=== PATIENT | female | born 1990 | race Caucasian/White ===

== ENCOUNTER → 2022-04-24 08:00 | Outpatient (BNV) | payer OTHER, SELFPAY | PROVIDERS: PCP Internal Medicine; Referring Provider Registered Nurse; Visit Provider Internal Medicine Medical Oncology | DX: D3A.090 Benign carcinoid tumor of the bronchus and lung (principal) | CPT/HCPCS: 99204; 99213; 99214 ==

== ENCOUNTER 2024-10-16 09:37 | Outpatient (REF) | payer OTHER, SELFPAY ==
--- NOTE | ~2024-10-16 | CT_ITS ---
CLINICAL HISTORY: carcinoid of lung CT chest with contrast Comparison: CT/SR - CHEST WITHOUT CONTRAST [id number] - 05/10/16 16:06 EDT Findings: The heart size is within normal limits. No discrete thyroid lesion. No significant mediastinal adenopathy. Postsurgical changes of the right hilum and along the right lung base. There are 2 nodules within the right middle lobe not definitively seen prior, reference axial image 79, measuring 5 mm and axial image 90, measuring 4 mm. No effusion or pneumothorax. Small hiatal hernia present. No suspicious bone lesion. Moderate pectus excavatum. The upper abdomen demonstrates no acute process. Impression: There are 2 right-sided nodules not seen on prior studies. If there are more recent prior studies than the 2016 CT, those could reviewed. Otherwise, six-month follow-up given the patient history. This document has been electronically signed by: Regan Mcclendon MD on 10/16/2024 12:36:13
--- OUTSIDE RECORDS SUMMARY | 2024-10-16 10:04 | XMS_ITS | Encounter Summary ---
Author Organization [facility] Address [address] [place] [address] Care Team Providers Care Reel Assembler Name Role Phone Asa Zhang MD Primary Care Provider [phone] Reason for Referral * Consultation (Routine) - Pending Review Specialty Diagnoses / Procedures Referred By Contac t Referred To Contact Cardiology Diagnoses Palpitations Asa Zhang MD [address] [place] [address] Phone: tel: fax: Referral ID Status Reason Start Date Expiration Date Visits Requested Visits Authorized [id number] Pending Review Specialty Services Required 10/16/2024 10/16/2025 1 1 * Consultation (Routine) - Authorized Specialty Diagnoses / Procedures Referred By Contac t Referred To Contact Gynecology / Obstetrics and Gynecology Diagnoses Encounter for gynecological examination Asa Zhang MD [address] [place] [address] Phone: tel: fax: Obstetrics and Gynecology - [address] Phone: tel: fax: Referral ID Status Reason Start Date Expiration Date Visits Requested Visits Authorized [id number] Authorized Specialty Services Required 10/16/2024 10/16/2025 1 1 * Consultation (Routine) - Authorized Specialty Diagnoses / Procedures Referred By Luis Fernando hawkins Referred To Contact Pulmonary Disease / Pulmonology Diagnoses Lung nodule Asa Zhang MD [address] [place] [id number] Phone: tel: fax: Pulmonology - [address] [address] Phone: tel: fax: Referral ID Status Reason Start Date Expiration Date Visits Requested Visits Authorized [id number] Authorized Specialty Services Required 10/16/2024 10/16/2025 1 1 * Consultation (Routine) - Pending Review Specialty Diagnoses / Procedures Referred By Luis Fernando hawkins Referred To Contact Dermatology Diagnoses Hair loss Asa Zhang MD [address] [place] [address] Phone: tel: fax: Referral ID Status Reason Start Date Expiration Date Visits Requested Visits Authorized [id number] Pending Review Specialty Services Required 10/16/2024 10/16/2025 1 1 Reason for Visit * Reason Comments Follow-up On lung problems spine Curvature of spine Encounter Details Date Type Department Care Team (Late st Contact Info) Description 10/16/2024 8:15 AM EST Office Visit Adult Medicine [address] [address] Asa Zhang MD [address] [place] [id number] Palpitations (Primary Dx); Hair loss; Anxiety disorder, unspecified type; Kyphosis of thoracic region, unspecified kyphosis type; Benign carcinoid tumor of lung; Lung nodule; Mixed hyperlipidemia; Encounter for gynecological examination Social History Tobacco Use Types Packs/Day Years Used Date Smoking Tobacco: Never Smokeless Tobacco: Never Tobacco Cessation:Counseling Given: Not Answered Alcohol Use Standard Drinks/Week Comments No 0 (1 standard drink = 0.6 oz pur e alcohol) Comments Unknown Sex and Gender Information Value Date Recorded Sex Assigned at Not on file Legal Sex Female 2:14 AM EST Gender Identity Not on file Sexual Orientation Not on file documented as of this encounter Last Filed Vital Signs Vital Sign Reading Time Taken Comments Blood Pressure 108/72 10/16/2024 8:10 AM EST Pulse 84 10/16/2024 8:10 AM EST Temperature 36.5 ??C (97.7 ??F) 10/16/2024 8:[address] Respiratory Rate 12 10/16/2024 8:10 AM EST Oxygen Saturation - - Inhaled Oxygen Concentration - - Weight 87.5 kg (193 lb) 10/16/2024 8:10 AM EST Height 167.6 cm (5' 6 ) 10/16/2024 8:10 AM EST Body Mass Index 31.15 10/16/2024 8:10 AM EST documented in this encounter Ordered Prescriptions Prescription Sig Dispense Quantity Refills Last Filled Start Date End Date cholecalciferol (VITAMIN D-3) 50 mcg (2,000 unit) tablet Take 1 tablet (2,000 Units total) by mouth 1 (one) time each day. 90 tablet 1 10/16/2024 documented in this encounter Progress Notes * Asa Zhang MD - 10/16/2024 8:15 AM EST CHIEF COMPLAINT: Follow-up (On lung problems) and spine (Curvature of spine) IDENTIFIER: Kimberly Pichardo is a 34 y.o. old female. HPI: 34-year-old female patient with a past medical history of carcinoid of lung, status post right middle and lower lobe resection in 2016, hyperlipidemia, obesity, anxiety disorder, palpitations, thoracic kyphosis, who is seen here for med review follow-up exam. Patient with recently seen by interventional rocket engine mechanic Dr. Yin and oncologist Dr. Bland. She reported that she has intermittent palpitations, happened a couple of times in the last 4 months. She also complained of some funny feeling in the chest. No typical anginal pain exertional shortness of breath. She has frequent anxiety episodes. Patient has thoracic kyphosis and complaint of intermittent back pain. She complained of increased hair loss. ROS: GENERAL: Hair loss HEENT: No changes in hearing or vision, nose bleeds or other nasal problems NECK: No lumps RESPIRATORY: No cough, wheezing or shortness of breath CARDIOVASCULAR: Intermittent palpitations GI: No abdominal pain, hematochezia, melena : No dysuria, oliguria, polyuria, hematuria, flank pain MUSCULOSKELETAL: On and off backache SKIN: No lesions, rash or itching NEURO: No persistent headache, syncope, seizures, weakness or numbness PAST MEDICAL HISTORY: Patient Active Problem List Diagnosis Date Noted Benign carcinoid tumor of lung 10/16/2024 Kyphosis of thoracic region 10/16/2024 Class 1 obesity due to excess calories without serious comorbidity in adult 08/05/2024 Mixed hyperlipidemia 04/15/2024 Pap smear abnormality of cervix/human papillomavirus (HPV) positive 04/25/2022 Insomnia 03/01/2019 Panic attack 02/27/2019 Malignant neoplasm of lung (CMS/HCC) 10/11/2017 Lung nodule 06/17/2015 Anxiety disorder 10/20/2013 Asthma 10/20/2013 Past Surgical History: Procedure Laterality Date OTHER SURGICAL HISTORY 2014 PROCEDURE: HISTORY OTHER; COMMENT: Right Lung CA resection SOCIAL HISTORY: Social History Tobacco Use Smoking status: Never Smokeless tobacco: Never Substance Use Topics Alcohol use: No FAMILY HISTORY: Family History Problem Relation Name Age of Onset No Known Problems Sister No Known Problems Brother No Known Problems Brother Diabetes Paternal Grandmother Breast cancer Mother Arthritis Mother Other (Other: Other) Mother Depression Mother Other (Other: panic attacks) Mother Depression Father Schizophrenia Father Other (Other: some type of heart disease ) Maternal Grandmother Breast cancer Other maternal aunt Ovarian cancer Neg Hx Uterine cancer Neg Hx Family Status Relation Name Status Sister Alive Brother Alive Brother Alive PGM Alive Mother Alive Father Alive MGM Other maternal aunt Alive Neg Hx (Not Specified) PGF No partnership data on file MEDICATIONS DISCONTINUED/REORDERED: Medications Discontinued During This Encounter Medication Reason cholecalciferol (VITAMIN D-3) 50 mcg (2,000 unit) tablet Reorder ACTIVE MEDICATIONS: Outpatient Medications Marked as Taking for the 10/16/24 encounter (Office Visit) with Asa Zhang MD Medication Sig Dispense Refill cholecalciferol (VITAMIN D-3) 50 mcg (2,000 unit) tablet Take 1 tablet (2,000 Units total) by mouth1 (one) time each day. 90 tablet 1 hydrOXYzine HCL (ATARAX) 10 mg tablet Take 1 tablet (10 mg total) by mouth 3 (three) times a day ifneeded for anxiety. mirtazapine (REMERON SLY-TAB) 30 mg disintegrating tablet Take 1 tablet (30 mg total) by mouth at bedtime. [DISCONTINUED] cholecalciferol (VITAMIN D-3) 50 mcg (2,000 unit) tablet Take 1 tablet (2,000 Units total) by mouth 1 (one) time each day. ALLERGIES: No Known Allergies PHYSICAL EXAM: Visit Vitals BP 108/72 (BP Location: Left arm, Patient Position: Sitting, BP Cuff Size: Adult long) Pulse 84 Temp 36.5 ??C (97.7 ??F) (Temporal) Resp 12 Ht 1.676 m (66 ) Wt 87.5 kg (193 lb) LMP 10/14/2024 BMI 31.15 kg/m?? Smoking Status Never BSA 1.97 m?? Physical Exam APPEARANCE: Alert and in no acute distress EYES: PERRLA, conjunctiva and sclera normal. EARS: External ears normal. NOSE/SINUS: Nares normal. MOUTH/THROAT: no erythema or exudates HEART: RRR with normal S1 and S2, no murmurs LUNG: clear to auscultation, no wheezing ABDOMEN: Bowel sounds normoactive, soft, non-tender and no palpable masses. BACK: No pain to palpation EXTREMITIES: No edema NEURO: Awake, alert and oriented x 3. No focal neurological deficits SKIN: No rashes LABS: @CBC@ No results found for: NA , K , CL , CO2 , GLUCOSE , BUN , CREATININE , CALCIUM , PROT , ALBUMIN , BILITOT , AST , ALT , URICACID , PHOS , MG , ALKPHOS , CKTOTAL , EGFR Lab Results Component Value Date HGBA1C 4.7 12/12/2023 No results found for: TSH Lab Results Component Value Date CHOL 206 (A) 12/12/2023 TRIG 106 12/12/2023 HDL 53 12/12/2023 LDL 132 (A) 12/12/2023 IMAGING: EKG-normal sinus rhythm, no acute ST-T changes. Ordered thoracic spine x-ray IMPRESSION: 1. Palpitations 2. Hair loss 3. Anxiety disorder, unspecified type 4. Kyphosis of thoracic region, unspecified kyphosis type 5. Benign carcinoid tumor of lung 6. Lung nodule 7. Mixed hyperlipidemia 8. Encounter for gynecological examination PLAN: Patient complained of on and off palpitations. No typical anginal symptoms or exertional shortness of breath. EKG-normal sinus rhythm, no acute ST-T changes. Check TSH level. Patient is recommended to avoid caffeinated drinks, alcohol. I will refer her to the residential sales manager for further evaluation. I will refer to the information technology auditor for hair loss evaluation. Check TSH level. I recommended her to follow-up with her therapist/psychiatrist and continue hydroxyzine as needed for anxiety disorder and Remeron She has thoracic kyphosis and complaint of on and off backache. I recommended her to take Tylenol as needed and I will do x-ray thoracic spine. She has history of lung nodules. She does not smoke. I will refer her back to the interventional rocket engine mechanic for follow-up exam when she follows with oncologist at [facility] Last LDL level was 132, patient is counseled for low-fat diet, repeat lipid profile and she is not on any statin therapy. Labs ordered including BMP, TSH and lipid panel. I referred her to the SKI PRODUCTION SUPERVISOR for Pap smear exam Follow-up exam in 6 months for physical exam All questions and concerns were addressed. Kimberly Pichardo verbalizes understanding and agrees with this treatment plan. Patient was reminded to call or return to the office if any new or existing problems arise. Orders Placed This Encounter Procedures XR Thoracic Spine Complete 4+ Views Basic metabolic panel Thyroid stimulating hormone with reflex to free t4 and free t3 Lipid panel with reflex to direct LDL Ambulatory referral to Dermatology Ambulatory referral to Interventional Pulmonology Ambulatory referral to Gynecology Ambulatory referral to Cardiology ECG 12 lead XR THORACIC SPINE COMPLETE 4+ VIEWS AMB REFERRAL TO DERMATOLOGY AMB REFERRAL TO INTERVENTIONAL PULMONOLOGY AMB REFERRAL TO GYNECOLOGY AMB REFERRAL TO CARDIOLOGY Asa Zhang MD on 10/16/2024 at 8:46 AM EST Today's documentation was made using voice recognition software.This note may contain grammatical errors secondary to this software. documented in this encounter Plan of Treatment Upcoming Encounters Date Type Department Care Team (Late st Contact Info) Description 04/15/2025 10:30 AM EDT Office Visit Adult Medicine [facility] [address] [place] [phone] Asa Zhang MD [address] [place] [id number] Scheduled Orders Name Type Priority Associated Diagnoses Orde r Schedule Basic metabolic panel Lab Routine Palpitations Hair loss Anxiety disorder, unspecified type Kyphosis of thoracic region, unspecified kyphosis type Benign carcinoid tumor of lung Lung nodule Mixed hyperlipidemia 1 Occurrences starting 10/16/2024 until 10/16/2025 Thyroid stimulating hormone with reflex to free t4 and free t3 Lab Routine Palpitations Hair loss Anxiety disorder, unspecified type Kyphosis of thoracic region, unspecified kyphosis type Benign carcinoid tumor of lung Lung nodule Mixed hyperlipidemia 1 Occurrences starting 10/16/2024 until 10/16/2025 Lipid panel with reflex to direct LDL Lab Routine Palpitations Hair loss Anxiety disorder, unspecified type Kyphosis of thoracic region, unspecified kyphosis type Benign carcinoid tumor of lung Lung nodule Mixed hyperlipidemia 1 Occurrences starting 10/16/2024 until 10/16/2025 Scheduled Referrals Name Type Priority Associated Diagnoses Orde r Schedule Ambulatory referral to Dermatology Outpatient Referral Routine Hair loss 1 Occurrences starting 10/16/2024 until 10/16/2025 Ambulatory referral to Interventional Pulmonology Outpatient Referral Routine Lung nodule 1 Occurrences starting 10/16/2024 until 10/16/2025 Ambulatory referral to Gynecology Outpatient Referral Routine Encounter for gynecological examination 1 Occurrences starting 10/16/2024 until 10/16/2025 Ambulatory referral to Cardiology Outpatient Referral Routine Palpitations 1 Occurrences starting 10/16/2024 until 10/16/2025 documented as of this encounter Procedures Procedure Name Priority Date/Time Associated Diagnosis Comments ECG 12-LEAD Routine 10/16/2024 8:45 AM EST Palpitations documented in this encounter Results * ECG 12 lead (10/16/2024 8:45 AM EST) Narrative Asa Zhang MD - 10/16/2024 8:45 AM EST EKG-normal sinus rhythm, no acute ST-T changes. Asa Zhang MD ECG ORDERABLES Final Resul t documented in this encounter Visit Diagnoses Diagnosis Palpitations- Primary Hair loss Unspecified alopecia Anxiety disorder, unspecified type Kyphosis of thoracic region, unspecified kyphosis type Benign carcinoid tumor of lung Benign carcinoid tumor of the bronchus and lung Lung nodule Other diseases of lung, not elsewhere classified Mixed hyperlipidemia Encounter for gynecological examination documented in this encounter Discontinued Medications Medication Sig Discontinue Reason Start Date End Da te cholecalciferol (VITAMIN D-3) 50 mcg (2,000 unit) tablet Take 1 tablet (2,000 Units total) by mouth 1 (one) time each day. Reorder 12/12/2023 10/16/2024 documented as of this encounter Care Teams Reel Assembler Relationship Specialty Start Date End Date Asa Zhang MD [address] [place] [phone] PCP - General 11/12/23 documented as of this encounter
--- OUTSIDE RECORDS SUMMARY | 2024-10-16 10:04 | XMS_ITS | Encounter Summary ---
Author Organization [facility] Address [address] [place] [address] Care Team Providers Care Mechanical Intern Name Role Phone Asa Zhang MD Primary Care Provider [phone] Encounter Details Date Type Department Care Team (Latest Contact Info) Description 10/16/2024 8:56 AM EST Hospital Encounter [address] [phone] Kyphosis of thoracic region, unspecified kyphosis type Social History Tobacco Use Types Packs/Day Years Used Date Smoking Tobacco: Never Smokeless Tobacco: Never Alcohol Use Standard Drinks/Week Comments No 0 (1 standard drink = 0.6 oz pur e alcohol) Comments Unknown Sex and Gender Information Value Date Recorded Sex Assigned at Not on file Legal Sex Female 2:14 AM EST Gender Identity Not on file Sexual Orientation Not on file documented as of this encounter Plan of Treatment Upcoming Encounters Date Type Department Care Team (Late st Contact Info) Description 04/15/2025 10:30 AM EDT Office Visit Adult Medicine [address] [phone] Asa Zhang MD [address] [place] [address] Pending Results Name Type Priority Associated Diagnoses Date /Time XR Thoracic Spine 2 Views Imaging Routine Kyphosis of thoracic region, unspecified kyphosis type 10/16/2024 9:23 AM EST Scheduled Orders Name Type Priority Associated Diagnoses Orde r Schedule XR Thoracic Spine 2 Views Imaging Routine Kyphosis of thoracic region, unspecified kyphosis type Once for 1 Occurrences starting 10/16/2024 until 10/16/2024 documented as of this encounter Visit Diagnoses Diagnosis Kyphosis of thoracic region, unspecified kyphosis type documented in this encounter Care Teams Mechanical Intern Relationship Specialty Start Date End Date Asa Zhang MD [address] [place] [phone] PCP - General 11/12/23 documented as of this encounter
--- OUTSIDE RECORDS SUMMARY | 2024-10-16 10:04 | XMS_ITS | Encounter Summary ---
Author Organization [facility] Address [address] [place] [address] Care Team Providers Care Tile Layer Drainage Name Role Phone Asa Zhang MD Primary Care Provider [phone] Reason for Visit * Reason Onset Date Comments WALK IN 09/18/2024 HEART PROBLEM Encounter Details Date Type Department Care Team ([facility] Contact Info) Description 09/18/2024 Telephone Adult Medicine [facility] [address] [place] [address] Asa Zhang MD [address] [place] [address] WALK IN (HEART PROBLEM) Social History Tobacco Use Types Packs/Day Years [...] on file documented as of this encounter Progress Notes * Rebeca Benavidez RN - 09/18/2024 4:42 PM EST Called and spoke with pt. Pt c/o episodes of rapid heart rate and vision going black and dizzy and feels like going to pass out. Pt sts happened multiple times this week. Pt advised to go to er for evaluation advised should not wait until next week for appt needs to be see bernice with sx * Jade Siddiqi - 09/18/2024 4:23 PM EST Patient is calling back. Would like care team to return call. * Rebeca Benavidez RN - 09/18/2024 10:29 AM EST Went to waiting room pt isnt there- bsr sts pts son had a hair appt- Called pt left vm to return * Minnie Valdivia - 09/18/2024 10:19 AM EST Patient call requires triage: Symptoms patient is presenting: PATIENT WALKED IN COMPLAIN OF HEART PROBLEM How long has patient had these symptoms?: 1 MONTH For ALL patients calling to schedule any appointment (routine, sick visit, follow up, consult, etc.) in the outpatient setting please ask the following questions: Do you have fever of higher than 101, sore throat with difficulty swallowing or severe shortness ofbreath? no If YES to any of these above symptoms, send a message to triage and do not book. Red dot. If no, an audio or video visit should be booked. Have you had close contact with someone with Coronavirus in the last 14 days? no Have you traveled abroad? no Have you traveled recently to another state outside of [place], [place], [place], [place], [place], [place], [place]? no o If yes, did you quarantine for 14 days or have a negative covid test? no If yes to any of the above, patient is not to be scheduled in office until after 14 day quarantine or negative covid test. If pain or injury related was it due to an accident at work or from a motor vehicle accident? If yes, date of accident/Injury: No If yes, gather 3rd libertarian insurance information Third Democrat Information: not applicable PCP: Asa Zhang MD Payor: [facility] MEDICARE / Plan: [employer] ONE CARE / Product Type: *No Product type* / documented in this encounter Plan of Treatment Upcoming Encounters Date Type Department Care Team (Late st Contact Info) Description 04/15/2025 10:30 AM EDT Office Visit Adult Medicine [address] [phone] Asa Zhang MD [address] [place] [address] documented as of this encounter Visit Diagnoses Not on filedocumented in this encounter Care Teams Tile Layer Drainage Relationship Specialty Start Date End Date Asa Zhang MD [address] [place] [address] PCP - General 11/12/23 documented as of this encounter
--- OUTSIDE RECORDS SUMMARY | 2024-10-16 10:05 | XMS_ITS | Clinical Summary ---
Author Organization [facility] Address [address] [place] [phone] Phone Care Team Providers Care Fractionation Plant Supervisor Name Role Phone Asa Zhang MD Primary Care Provider [phone] Allergies No known active allergies Medications mirtazapine (REMERON SLY-TAB) 30 mg disintegrating tablet Take 1 tablet (30 mg total) by mouth at bedtime. Active hydrOXYzine HCL (ATARAX) 10 mg tablet Take 1 tablet (10 mg total) by mouth 3 (three) times a day if needed for anxiety. Active medroxyPROGESTERon e 150 mg/mL injection Inject 1 mL into the muscle Every 3 Months. 3 Active cholecalciferol (VITAMIN D-3) 50 mcg (2,000 unit) tablet Take 1 tablet (2,000 Units total) by mouth 1 (one) time each day. 90 tablet 1 5 Active cholecalciferol (VITAMIN D-3) 50 mcg (2,000 unit) tablet Take 1 tablet (2,000 Units total) by mouth 1 (one) time each day. 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 Has not been seen for a few yrs, now . [facility] referral placed Advised to f/u with Oncology bernice 04/24/22- Seen at [facility]- notes requested and will be faxed to [facility]: -NCCN guidelines recommend CT scan q3 months x1 year, then q6 months. She was lost to f/u since 2017 -Last CT in January 2017 demonstrated stable 0.4cm nodule in the right upper lobe -Heme/Onc to follow labs including chromogranin level to monitor disease activity -To f/u with Heme/Onc in 3 months -No contraindications to normal vaginal delivery Lung nodule 06/17/2015 Anxiety disorder 10/20/2013 Overview (08/05/2024): Mirtazapam- 15mg daily Has therapist and phyciatrist- has upcoming apt in May Pt taking 3.25mg BID during Asthma 10/20/2013 Encounters Date Type Department Care Team Description 10/16/2024 8:56 AM EST Hospital Encounter [address] [phone] Kyphosis of thoracic region, unspecified kyphosis type 10/16/2024 8:15 AM EST Office Visit Adult Medicine [address] [phone] Asa Zhang MD Palpitations (Primary Dx); Hair loss; Anxiety disorder, unspecified type; Kyphosis of thoracic region, unspecified kyphosis type; Benign carcinoid tumor of lung; Lung nodule; Mixed hyperlipidemia; Encounter for gynecological examination 09/18/2024 Telephone Adult Medicine [address] [phone] Asa Zhang MD WALK IN (HEART PROBLEM) 08/24/2024 Telephone Adult Medicine [address] [phone] Asa Zhang MD triage from Last 3 Months Immunizations Name Administration Dates Next Due Influenza Quadravalent, MDCK , 0.5ml, preservative free (Flucelvax) 6mo and older 09/06/2022 Tdap Tetanus diptheria acell ular pertussis (Boostrix; Adacel) 7yo and older 07/25/2022,10/15/2013 Surgical History Surgery Date Site/Laterality Comments OTHER SURGICAL HISTORY 2014 PROCEDURE: HISTORY OTHER; COMMENT: Right Lung CA resection Medical History Medical History Date Comments Asthma 10/20/2013 DX:Asthma Depression 10/20/2013 DX:Depression Lung mass 06/17/2015 DX:Lung mass Family History Medical History Relation Name Comments No Known Problems Brother 1 No Known Problems Brother 2 Depression Father Schizophrenia Father Other: some type of heart disease Maternal Grandmother Arthritis Mother Breast cancer Mother Depression Mother Other: Other Mother Other: panic attacks Mother Breast cancer Other maternal aunt Diabetes Paternal Grandmother No Known Problems Sister Ovarian cancer Neg Hx Uterine cancer Neg Hx Relation Name Status Comments Brother 1 Alive Brother 2 Alive Father Alive Maternal Grandmother Mother Alive Other maternal aunt Alive Paternal Grandfather Paternal Grandmother Alive Sister Alive Social History Tobacco Use Types Packs/Day Years [...] on file Sexual Orientation Not on file Obstetrics History Last Filed Vital Signs Vital Sign Reading Time Taken Comments Blood Pressure 108/72 10/16/2024 8:10 AM EST Pulse 84 10/16/2024 8:10 AM EST Temperature 36.5 ??C (97.7 ??F) 10/16/2024 8:10 AM ES T Respiratory Rate 12 10/16/2024 8:10 AM EST Oxygen Saturation - - Inhaled Oxygen Concentration - - Weight 87.5 kg (193 lb) 10/16/2024 8:10 AM EST Height 167.6 cm (5' 6 ) 10/16/2024 8:10 AM EST Body Mass Index 31.15 10/16/2024 8:10 AM EST Plan of Treatment Upcoming Encounters Date Type Department Care Team (Late st Contact Info) Description 04/15/2025 10:30 AM EDT Office Visit Adult Medicine [facility] [address] [place] [phone] Asa Zhang MD [address] [place] [phone] Health Maintenance Due Date Last Done Comments COVID-19 Vaccine (#1) 1995 Hepatitis B Vaccines (1 of 3 - 19+ 3-dose series) 2009 Pneumococcal Vaccine: Pediatrics (0 to 5 Years) and At-Risk Patients (6 to 64 Years) (1 of 2 - PCV) 2009 Medicare Annual Wellness Visit 08/05/2022 Social Influencers of Health Screening 08/05/2022 Influenza Vaccine (#1) 2024 , 08/31/2016, 05/30/2015 Depression Screening 04/15/2025 04/15/2024 Cervical Cancer Screening: HPV 11/17/2027 11/16/2022 Cholesterol Screening (Lipid Panel) 12/11/2028 12/12/2023 DTaP,Tdap,and Td Vaccines (3 - Td or Tdap) 07/25/2032 07/25/2022, 10/15/2013 HIV Screening Completed 04/12/2022 Hepatitis C Screening Completed 04/12/2022 HIB Vaccines Aged Out No longer eligi ble based on patient's age to complete this topic HPV Vaccines Aged Out No longer eligi ble based on patient's age to complete this topic Hepatitis A Vaccines Aged Out No long er eligible based on patient's age to complete this topic IPV Vaccines Aged Out No longer eligi ble based on patient's age to complete this topic MMR Vaccines Aged Out No longer eligi ble based on patient's age to complete this topic Meningococcal ACWY Vaccine Aged Out N o longer eligible based on patient's age to complete this topic Meningococcal B Vacine Aged Out No lo nger eligible based on patient's age to complete this topic RSV Immunization Patients Under 20 months Aged Out No longer eligible b ased on patient's age to complete this topic Varicella Vaccines Aged Out No longer eligible based on patient's age to complete this topic Procedures Procedure Name Priority Date/Time Associated Diagnosis Comments ECG 12-LEAD Routine 10/16/2024 8:45 AM EST Palpitations DEPRESSION SCREENING Routine 04/15/2024 LIPID PANEL Routine 12/12/2023 HPV Routine 11/16/2022 HEPATITIS C SCREENING Routine 04/12/2022 HIV SCREENING Routine 04/12/2022 from Last 3 Months or Most Recently Relevant to Health Maintenance Results * ECG 12 lead (10/16/2024 8:45 AM EST) Narrative Asa Zhang MD - 10/16/2024 8:45 AM EST EKG-normal sinus rhythm, no acute ST-T changes. Asa Zhang MD ECG ORDERABLES Final Resul t * Depression Screening (04/15/2024) [facility] Depression Screening Abstracted Historical Provider HEALTH MAINTENANCE Final Result * (ABNORMAL) Lipid panel (12/12/2023) [facility] LDL/HDL Ratio 4 0 - 4 Triglycerides 106 0 - 150 mg/dL Cholesterol 206(A) 0 - 200 mg/dL HDL 53 >=40 mg/dL LDL Cholesterol 132(A) 0 - 100 mg/dL Blood Venous blood specimen / Unknown Historical Provider LAB BLOOD ORDERABLES Maryam l Result * Cervical Cancer Screening: HPV (11/16/2022) [facility] Cervical Cancer Screening: HPV Abstracted, Negative Historical Provider HEALTH MAINTENANCE Final Result * HIV Screening (04/12/2022) HIV Screening Abstracted Historical Provider HEALTH MAINTENANCE Final Result * Hepatitis C Screening (04/12/2022) Hepatitis C Screening Abstracted Historical Provider HEALTH MAINTENANCE Final Result from Last 3 Months or Most Recently Relevant to Health Maintenance Insurance [employer] Member Subscriber Plan / Payer (Ef fective 2019-Present) Name:Kimberly Stoll Relation to Subscriber:Self Name:Kimberly Stoll Payer ID:[id number] Group ID:[id number] Type:Not on file Address: [address] [facility] [place] [id number] Care Teams Fractionation Plant Supervisor Relationship Specialty Start Date End Date Asa Zhang MD [address] [place] [id number] PCP - General 11/12/23
[2024-10-16] MEDS: iohexoL 350 MG/ML 100 ML INFUS..BTL IV (10:13)
== END 2024-10-16 09:38 | disposition home or self-care (01) ==
LOC: HO.CT 09:37
PROVIDERS: PCP Internal Medicine; Visit Provider Internal Medicine Medical Oncology
DX: D3A.00 Benign carcinoid tumor of unspecified site (principal); R91.8 Other nonspecific abnormal finding of lung field
CPT/HCPCS: 71260; Q9967

== ENCOUNTER → 2024-10-16 09:38 | Outpatient (BNV) | payer OTHER, SELFPAY | PROVIDERS: PCP Internal Medicine; Visit Provider Radiology Vascular & Interventional Radiology | DX: R91.1 Solitary pulmonary nodule (principal) | CPT/HCPCS: 71260 ==

== ENCOUNTER 2024-12-04 21:46 | Emergency (ER) | payer OTHER, SELFPAY ==
--- NOTE | 2024-12-04 | ECG_ITS ---
Test Reason : CP Blood Pressure : */* mmHG Vent. Rate : 66 BPM Atrial Rate : 66 BPM P-R Int : 142 ms QRS Dur : 92 ms QT Int : 422 ms P-R-T Axes : 42 52 20 degrees QTcB Int : 442 ms Normal sinus rhythm Normal ECG No previous ECGs available Referred By: Generic ED Physician Electronically Signed By: NICHOLAS BROWNE
[2024-12-04 22:23] VITALS: BP 118/66; PULSE 67; RESP 20; TEMP 36.7; O2SAT 100; BMI 30.3
[2024-12-04 22:49] LABS: MANUAL DIFF FLAG NO
[2024-12-04 22:51] LABS: Basophils Percent Auto 0.8 % (0-2); Eosinophils Absolute Auto 0.2 X10*3/uL (0.0-0.4); Eosinophils Percent Auto 3.3 % (0-4); Hematocrit 38.1 % (37.0-47.0); Hemoglobin 13.3 g/dl (12.0-16.0); Imm Gran Abs Auto 0.01 X10*3/uL (0.00-0.03); Imm Gran Pct Auto 0.2 % (0.0-0.4); Lymphocytes Absolute Auto 2.6 X10*3/uL (1.2-4.9); Lymphocytes Percent Auto 52.1 % (20-40); Mean Corpuscular HGB Conc 34.9 g/dl (31.0-35.0); Mean Corpuscular Hemoglobin 30.7 pg (27.0-33.0); Mean Platelet Volume 9.7 fL (9.4-12.3); Monocytes Absolute Auto 0.3 X10*3/uL (0.1-1.2); Monocytes Percent Auto 6.3 % (2-11); Neutrophils Absolute Auto 1.8 x10*3/uL (2.0-8.3); Neutrophils Percent Auto 37.3 % (45-73); Platelet Count 302 X10*3/uL (160-400); Red Blood Count 4.33 X10*6/uL (4.20-5.50); Red Cell Distribution Width 12.5 % (11.0-16.0); White Blood Count 4.9 X10*3/uL (4.8-10.8)
[2024-12-04 23:06] LABS: Alanine Aminotransferase 23 U/L (0-31); Alkaline Phosphatase 70 U/L (39-117); Anion Gap 11 (12-20); Aspartate Amino Transferase 20 U/L (5-31); Bilirubin Total 0.3 mg/dL (0.0-1.0); Blood Urea Nitrogen 9 mg/dL (9-16); Calcium 9.1 mg/dL (8.4-10.2); Carbon Dioxide 25 mmol/L (22-29); Chloride 112 mmol/L (96-108); Creatinine Clr Calc Pharmacy 126.3; Estimated Glomerular Filt Rate > 60; Glucose Random 84 mg/dL (60-115); Potassium 3.6 mmol/L (3.3-5.1); Sodium 144 mmol/L (135-145)
[2024-12-04 23:15] LABS: Troponin-I High Sensitivity < 2.7 ng/L (<3.5-17.0)
--- OUTSIDE RECORDS SUMMARY | 2024-12-04 23:49 | XMS_ITS | Encounter Summary ---
Author Organization [facility] Address [address] [place] [address] Care Team Providers Care Welder Fitter Arc Name Role Phone Asa Zhang MD Primary Care Provider [phone] Encounter Details Date Type Department Care Team (Late st Contact Info) Description 12/01/2024 3:00 PM EDT [facility] [address] [place] [phone] June Yin MD [address] [place] [phone] Lung nodule (Primary Dx); Malignant carcinoid tumor of lung Social History Tobacco Use Types Packs/Day Years [...] as of this encounter Progress Notes * June Yin MD - 12/01/2024 3:00 PM EDT Images from the original note were not included. 12/01/2024 Kimberly Pichardo : 1990 PCP: Asa Zhang MD CONSENT I conducted this virtual encounter from Pulmonology [facility] via secure, live, [id number] video conference with the patient. Started video visit and patient had technical issues with the videoduring the visit. Kimberly Pichardo was located at home. Present with the patient was none. Prior to the interview, the risks and benefits of telemedicine were discussed with the patient and verbal consent was obtained. This telemedicine visit occurred in order to mitigate exposure risk duringthe COVID-19 pandemic. Reason for telemedicine encounter: see above and patient preference Chief Complaint:: lung nodules History of Present Illness: Kimberly Pichardo is a 34 y.o. female PMH lung carcinoid status post right middle and lower lobe lobectomy in 2016 at [facility] by Dr. Be Chung, obesity, anxiety and depression and panic attacks, who presents as a new consult for lung nodules. She follows with Dr. Baldo Salmeron from Oncology at [facility] for carcinoid tumor, reportedly typical. We obtained notes from their office as pt could provide limited hx. In 2014 she had a Right VATS with resection for a mass in RLL and found to be 3.5 cm typical carcinoid tumor, with negative LNs, stage pT2a, pN0. She is seen by Dr. Salmeron. She had a CT chest done at [facility] (in [employer] [facility]) 05/13/24 which showed postoperative changes in R lung and multiple pulmonary nodules up to 5 mm unchanged from 2018. There is an area of linear atelectasis in RML. Had a follow up CT chest in [facility] Oct 2024 but this CD was not sent. This report states there arenew RML nodules not previously seen in 2016 (which was last CT apparently available for comparison at [facility]). She has no new symptoms except some musculoskeletal pain on R side of chest. No F/C, hemoptysis, unintentional wt loss, night sweats. We obtained imaging from [facility] from Oct 2024 and pt presents for video visit today. I reviewed January 2018, May 2024, and Oct 2024 imaging which is now available in [employer] PACS system. Nodules are inRUL and unchanged in size, approx 5 mm both, over this time period since 2018. Allergies: No Known Allergies Medications: Current Outpatient Medications Medication Instructions cholecalciferol (VITAMIN D-3) 2,000 Units, oral, Daily hydrOXYzine HCL (ATARAX) 10 mg tablet 1 tablet, 3 times daily PRN medroxyPROGESTERone 150 mg/mL injection Inject 1 mL into the muscle Every 3 Months. mirtazapine (REMERON SLY-TAB) 30 mg, Nightly Past Medical History: Diagnosis Date Asthma 10/20/2013 DX:Asthma Depression 10/20/2013 DX:Depression Lung mass 06/17/2015 DX:Lung mass Past Surgical History: Procedure Laterality Date OTHER SURGICAL HISTORY 2014 PROCEDURE: HISTORY OTHER; COMMENT: Right Lung CA resection Family History Problem Relation Name Age of [...] cancer Neg Hx Uterine cancer Neg Hx Social History Socioeconomic History Marital status: Single Spouse name: Not on file Number of children: Not on file Years of education: Not on file Highest education level: Not on file Occupational History Not on file Tobacco Use Smoking status: Never Smokeless tobacco: Never Substance and Sexual Activity Alcohol use: No Drug use: No Sexual activity: Not on file Comment: Other Topics Concern Not on file Social History Narrative 04/03/22 Planned :NO- happy- Lives with: daughters- 10 and 9yo girls Other Children: 2 boys and 1 girl by other partner - FOB of current Support system in place:YES - zoroastrianism and family Pets:NO Occupation: on SSI FOB occupation: CN A Smoker:NO Pt Ethnic Background: FOB Ethnic Background: FOB of 2 girls, had vascectomy, and moved out when patient became . Patient had another partner. Other male partner aware patient . Review of Systems Constitutional: Negative. HENT: Negative. Eyes: Negative. Respiratory: See HPI otherwise negative Cardiovascular: Negative. Gastrointestinal: Negative. Endocrine: Negative. Genitourinary: Negative. Musculoskeletal: Negative. Skin: Negative. Breast: negative. Allergic/Immunologic: Negative. Neurological: Negative. Hematological: Negative. Psychiatric/Behavioral: Negative. There were no vitals filed for this visit. There is no height or weight on file to calculate BMI. Video visit, technical issues with video in middle of visit Speaks in complete sentences without any apparent shortness of breath Lab Results Component Value Date BUN 8 11/19/2024 CALCIUM 9.6 11/19/2024 CL 106 11/19/2024 CHOL 181 11/19/2024 CO2 25 11/19/2024 CREATININE 0.66 11/19/2024 HDL 45 11/19/2024 HGBA1C 4.7 12/12/2023 LDL 132 (A) 12/12/2023 K 3.9 11/19/2024 NA 139 11/19/2024 TRIG 118 11/19/2024 Pulmonary Function Results: Imaging: I personally reviewed imaging and the data revealed: CT chest Oct 2024 CT chest May 2024 RUL nodules, no RLL present Visit Diagnoses: 1. Lung nodule 2. Malignant carcinoid tumor of lung Impression: Lung nodules RUL sub 6 mm stable since 2017 Without suspicious features New scan from [facility] October 2024 which we obtained and I have reviewed. No changes in size of RUL nodules from May 2024 and from January 2018 Ddx carcinoid unlikely vs benign favored Recommendations: -No surveillance for nodules recommended from IP standpoint, for typical node negative carcinoid there is no established benefit to annual surveillance. Furthermore, no change in nodules from 2017 [id number] points to a benign cause -I will defer to Dr. Salmeron from [facility], pt's primary oncologist, regarding if future CT chest is desired Today I have spent 40 minutes on this encounter with the following activities: Pre-visit review of chart Pre-visit review of imaging, multiple PACS Reviewing patient provided information Personal face to face with patient (including discussion counseling) History and physical examination Medication reconciliation Discussion of laboratory results and pathology Discussion with consulting/referring physician(s) Coordination of care including with office staff and nurse navigation Documentation. June Yin MD [place] [address] Office [phone] documented in this encounter Plan of Treatment Upcoming Encounters Date Type Department Care Team (Late st Contact Info) Description 02/17/2025 7:50 AM EDT Office Visit [facility] [address] [place] [address] Dr De Jesus [address] [place] [phone] Chin Marie MD [address] [place] [address] [address] [place] [address] 03/23/2025 1:30 PM EDT Office Visit Obstetrics and Gynecology [address] [phone] Madyson Conrad, [address] 04/15/2025 10:30 AM EDT Office Visit Adult Medicine [place] [facility] [address] [phone] Asa Zhang MD [address] [place] [address] documented as of this encounter Visit Diagnoses Diagnosis Lung nodule- Primary Other diseases of lung, not elsewhere classified Malignant carcinoid tumor of lung Malignant carcinoid tumor of the bronchus and lung documented in this encounter Care Teams Welder Fitter Arc Relationship Specialty Start Date End Date Asa Zhang MD [address] [place] [address] PCP - General 11/12/23 documented as of this encounter
--- OUTSIDE RECORDS SUMMARY | 2024-12-04 23:49 | XMS_ITS | Clinical Summary ---
Author Organization [facility] [address] [facility] Address [address] [place] [phone] Phone Care Team Providers Care Medical Library Assistant Name Role Phone Asa Zhang MD Primary Care Provider Allergies No known active allergies Medications mirtazapine (REMERON SLY-TAB) 30 mg disintegrating tablet Take 1 tablet (30 mg total) by mouth at bedtime. Active hydrOXYzine HCL (ATARAX) 10 mg tablet Take 1 tablet (10 mg total) by mouth 3 (three) times a day if needed for anxiety. Active medroxyPROGESTERone 150 mg/mL injection Inject 1 mL into the muscle Every 3 Months. 3 Active cholecalciferol (VITAMIN D-3) 50 mcg (2,000 unit) tablet Take 1 tablet (2,000 Units total) by mouth 1 (one) time each day. 90 tablet 1 5 Active Active Problems Problem Noted Date Diagnosed Date [...] seen for a few yrs, now . MFM referral placed Advised to f/u with Oncology bernice 04/24/22- Seen [place] [facility]- notes requested and will be faxed to MFM: -NCCN guidelines recommend CT scan q3 months [...] Encounters Date Type Department Care Team Description 12/01/2024 3:00 PM EDT Telemedicine Pulmonology - [address] [phone] June Yin MD Lung nodule (Primary Dx); Malignant carcinoid tumor of lung 11/19/2024 9:35 AM EDT Lab Draw Station - [address] [phone] Palpitations; Hair loss; Anxiety disorder, unspecified type; Kyphosis of thoracic region, unspecified kyphosis type; Benign carcinoid tumor of lung; Lung nodule; Mixed hyperlipidemia 11/03/2024 10:00 AM EST Consult Pulmonology - [address] [phone] June Yin MD Lung nodule 10/16/2024 8:56 AM EST - 10/16/2024 11:59 PM EST Hospital Encounter XRAY - [id number] [place] [phone] Kyphosis of thoracic region, unspecified kyphosis type Discharge Disposition: Home or Self Care 10/16/2024 8:15 AM EST Office Visit Adult Medicine [address] [phone] Asa Zhang MD Palpitations (Primary Dx); Hair loss; Anxiety disorder, unspecified type; Kyphosis of thoracic region, unspecified kyphosis type; Benign carcinoid tumor of lung; Lung nodule; Mixed hyperlipidemia; Encounter for gynecological examination 09/18/2024 Telephone Adult Medicine [address] [phone] Asa Zhang MD WALK IN (HEART PROBLEM) from Last 3 Months Immunizations Name Administration [...] Sign Reading Time Taken Comments Blood Pressure 119/70 11/03/2024 9:58 AM EST Pulse 86 11/03/2024 9:58 AM EST Temperature 36.8 ??C (98.2 ??F) 11/03/2024 9:58 AM ES T Respiratory Rate 12 10/16/2024 8:10 AM EST Oxygen Saturation 99% 11/03/2024 9:58 AM EST Inhaled Oxygen Concentration - - Weight 87.5 kg (193 lb) 11/03/2024 9:58 AM EST Height 167.6 cm (5' 6 ) 11/03/2024 9:58 AM EST Body Mass Index 31.15 11/03/2024 9:58 AM EST Plan of Treatment Upcoming Encounters Date Type Department Care Team (Late st Contact Info) Description 02/17/2025 7:50 AM EDT Office Visit [facility] [address] [place] [phone] Chin Marie MD [address] [place] [address] DRIVE [address] [place] [address] 03/23/2025 1:30 PM EDT Office Visit Obstetrics and Gynecology - [address] [phone] Madyson Conrad, [address] [address] 04/15/2025 10:30 AM EDT Office Visit Adult Medicine [place] - [address] [phone] Asa Zhang MD [address] [place] [phone] Health Maintenance Due Date Last Done Comments COVID-19 Vaccine (#1) 1995 Hepatitis B Vaccines (1 of 3 - 19+ 3-dose series) 2009 Pneumococcal Vaccine: Pediatrics (0 to 5 Years) and At-Risk Patients (6 to 64 Years) (1 of 2 - PCV) 2009 Medicare Annual Wellness Visit 08/05/2022 Social Influencers of Health Screening 08/05/2022 Depression Screening 04/15/2025 04/15/2024 Influenza Vaccine (Season Ended) 2025 09/06/2022, 08/31/2016, 05/30/2015 Cervical Cancer Screening: HPV 11/17/2027 11/16/2022 Cholesterol Screening (Lipid Panel) 11/19/2029 11/19/2024, 12/12/2023 DTaP,Tdap,and Td Vaccines (3 - Td [...] Procedure Name Priority Date/Time Associated Diagnosis Comments BASIC METABOLIC PANEL Routine 11/19/2024 9:32 AM EDT Palpitations Hair loss Anxiety disorder, unspecified type Kyphosis of thoracic region, unspecified kyphosis type Benign carcinoid tumor of lung Lung nodule Mixed hyperlipidemia THYROID STIMULATING HORMONE WITH REFLEX TO FREE T4 AND FREE T3 Routine 11/19/2024 9:32 AM EDT Palpitations Hair loss Anxiety disorder, unspecified type Kyphosis of thoracic region, unspecified kyphosis type Benign carcinoid tumor of lung Lung nodule Mixed hyperlipidemia LIPID PANEL WITH REFLEX TO DIRECT LDL Routine 11/19/2024 9:32 AM EDT Palpitations Hair loss Anxiety disorder, unspecified type Kyphosis of thoracic region, unspecified kyphosis type Benign carcinoid tumor of lung Lung nodule Mixed hyperlipidemia XR THORACIC SPINE 2 VIEWS Routine 10/16/2024 9:23 AM EST Kyphosis of thoracic region, unspecified kyphosis type ECG 12-LEAD Routine 10/16/2024 8:45 AM EST Palpitations DEPRESSION SCREENING Routine 04/15/2024 HM HPV Routine 11/16/2022 HEPATITIS C SCREENING Routine 04/12/2022 HIV SCREENING Routine 04/12/2022 from Last 3 Months or Most Recently Relevant to Health Maintenance Results * Thyroid stimulating hormone with reflex to free t4 and free t3 (11/19/2024 9:32 AM EDT) [facility] TSH 1.13 0.40 - 4.00 mcIU/mL LAB CHEMISTRY METHOD 11/19/2024 1:45 PM EDT [facility] Blood Venous blood specimen / Unknown Venipuncture / Unknown 11/19/2024 9:32 AM EDT 11/19/2024 9:32 AM EDT us Asa Zhang MD LAB BLOOD ORDERABLES Final Result [facility] [address] [place] [address], [place] [phone] * (ABNORMAL) Lipid panel with reflex to direct LDL (11/19/2024 9:32 AM EDT) [facility] Cholesterol 181 0 - 200 mg/dL LAB CHEMISTRY METHOD 11/19/2024 2:10 PM EDT [facility] Triglycerides 118 0 - 150 mg/dL LAB CHEMISTRY METHOD 11/19/2024 2:10 PM EDT [facility] HDL 45 >=40 mg/dL LAB CHEMISTRY METHOD 11/19/2024 2:10 PM EDT [facility] LDL Calculated 112(H) 0 - 100 mg/dL LAB CHEMISTRY METHOD 11/19/2024 2:10 PM EDT [facility] VLDL Cholesterol Fabricio 23.6 mg/dL LAB CHEMISTRY METHOD 11/19/2024 2:10 PM EDT [facility] Non HDL Chol. (LDL+VLDL) 136 <145 mg/dL LAB CHEMISTRY METHOD 11/19/2024 2:10 PM EDT [facility] Chol/HDL Ratio 4.0 0.0 - 4.4 LAB CHEMISTRY METHOD 11/19/2024 2:10 PM EDT [facility] Blood Venous blood specimen / Unknown Venipuncture / Unknown 11/19/2024 9:32 AM EDT 11/19/2024 9:32 AM EDT us Asa Zhang MD LAB BLOOD ORDERABLES Final Result [facility] [address] [place] [address], * Basic metabolic panel (11/19/2024 9:32 AM EDT) Sodium 139 133 - 145 mmol/L LAB CHEMISTRY METHOD 11/19/2024 2:10 PM EDT [facility] Potassium 3.9 3.5 - 5.5 mmol/L LAB CHEMISTRY METHOD 11/19/2024 2:10 PM [facility] Chloride 106 96 - 110 mmol/L LAB CHEMISTRY METHOD 11/19/2024 2:10 PM EDT [facility] CO2 25 21 - 32 mmol/L LAB CHEMISTRY METHOD 11/19/2024 2:10 PM T [facility] Anion Gap 8 3 - 11 LAB CHEMISTRY METHOD 11/19/2024 2:10 PM EDT [facility] Glucose 86 70 - 100 mg/dL LAB CHEMISTRY METHOD 11/19/2024 2:10 PM EDT [facility] BUN 8 5 - 25 mg/dL LAB CHEMISTRY METHOD 11/19/2024 2:10 PM EDT [facility] Creatinine 0.66 0.50 - 1.10 mg/dL LAB CHEMISTRY METHOD 11/19/2024 2:10 PM EDT [facility] eGFR 118 >=60 mL/min/1. 73m2 LAB CHEMISTRY METHOD 11/19/2024 2:10 PM EDT [facility] Comment:Calculation based on the??Chronic Kidney Disease Epidemiology Collaboration (CKD-EPI) equation refit??without adjustment for race. BUN/Creatinine Ratio 12.1 LAB CHEMISTRY METHOD 11/19/2024 2:10 PM EDT [facility] Calcium 9.6 8.5 - 10.5 mg/dL LAB CHEMISTRY METHOD 11/19/2024 2:10 PM EDT [facility] Blood Venous blood specimen / Unknown Venipuncture / Unknown 11/19/2024 9:32 AM EDT 11/19/2024 9:32 AM EDT us Asa Zhang MD LAB BLOOD ORDERABLES Final Result [facility] [address] [place] [address], * XR Thoracic Spine 2 Views (10/16/2024 9:23 AM EST) Anatomical Region Laterality Modality Spine, T-spine Radiographic Majo ging 10/16/2024 10:0 6 AM EST Impressions 10/16/2024 10:11 AM EST No acute fracture or dislocation of the thoracic spine. -------- FINAL REPORT -------- Dictated By: Leo Howard Dictated Date: 10/16/2024 10:06 ET Assigned Physician: Leo Howard Reviewed and Electronically Signed By: Leo Howard Signed Date: 10/16/2024 10:11 ET Workstation ID: [id number] Transcribed By: Self Edit Transcribed Date: 10/16/2024 10:06 ET Narrative 10/16/2024 10:11 AM EST HISTORY: Mid backache/Kyphosis TECHNIQUE: 2 views of the thoracic spine COMPARISON: None FINDINGS: The vertebral body and disc space heights are preserved. The upper thoracic spine is not well-visualized on the lateral view. ??Spinal alignment is maintained without evidence of spondylolisthesis. ??Tiny osteophytes along the anterior thoracic spine. ??No acute fracture is identified. ??Postoperative changes of the right lower lung zone. Procedure Note Loe Howard MD - 10/16/2024 HISTORY: Mid backache/Kyphosis TECHNIQUE: 2 views of the thoracic spine COMPARISON: None FINDINGS: The vertebral body and disc space heights are preserved. The upperthoracic spine is not well-visualized on the lateral view. Spinalalignment is maintained without evidence of spondylolisthesis. Tinyosteophytes along the anterior thoracic spine. No acute fracture isidentified. Postoperative changes of the right lower lung zone. IMPRESSION: No acute fracture or dislocation of the thoracic spine. -------- FINAL REPORT -------- Dictated By: Leo Howard Dictated Date: 10/16/2024 10:06 ET Assigned Physician: Leo Howard Reviewed and Electronically Signed By: Leo Howard Signed Date: 10/16/2024 10:11 ET Workstation ID: [id number] Transcribed By: Self Edit Transcribed Date: 10/16/2024 10:06 ET us Asa Zhang MD IMG XR PROCEDURES Final Res ult * ECG 12 lead (10/16/2024 8:45 AM EST) Narrative Asa Zhang MD - 10/16/2024 8:45 AM EST EKG-normal sinus rhythm, no acute ST-T changes. Asa Zhang MD ECG ORDERABLES Final Resul t * Depression Screening (04/15/2024) Pathologist [facility] Depression Screening Abstracted Historical Provider HEALTH MAINTENANCE Final Result * Cervical Cancer Screening: HPV (11/16/2022) [facility] Cervical Cancer Screening: HPV Abstracted, Negative Result [facility] Historical Provider HEALTH MAINTENANCE Final Result * HIV Screening (04/12/2022) [facility] HIV Screening Abstracted Result [facility] Provider HEALTH MAINTENANCE Final Result * Hepatitis C Screening (04/12/2022) [facility] Hepatitis C Screening Abstracted Result [facility] Historical Provider HEALTH MAINTENANCE Final Result from Last 3 Months or Most Recently Relevant to Health Maintenance Insurance [facility] MEDICARE Member Subscriber Plan / Payer (Ef fective 2019-Present) Name:Kimberly Stoll Relation to Subscriber:Self Name:Kimberly Stoll Payer ID:[id number] Group ID:[id number] Type:Not on file Address: [facility] [address] [id number] Care Teams Medical Library Assistant Relationship Specialty Start Date End Date Asa Zhang MD [address] [place] [phone] PCP - General 11/12/23
== END 2024-12-04 23:51 | disposition left against medical advice (07) ==
LOC: HO.ED 23:47
PROVIDERS: Emergency Provider Emergency Medicine
DX: R51.9 Headache, unspecified (principal); R11.10 Vomiting, unspecified; R07.89 Other chest pain
CPT/HCPCS: 36415; 80053; 84484; 85025; 93005; 99281; 99283

== ENCOUNTER → 2024-12-04 22:40 | Outpatient (BNV) | payer OTHER, SELFPAY | PROVIDERS: Emergency Provider Emergency Medicine; Visit Provider Internal Medicine | DX: R07.9 Chest pain, unspecified (principal) | CPT/HCPCS: 93010 ==

== ENCOUNTER 2025-03-11 19:21 | Emergency (ER) | payer OTHER, MEDICAID, SELFPAY ==
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
--- NOTE | ~2025-03-11 | XR_ITS ---
CLINICAL HISTORY: pain 3 view left ankle Comparison: None provided Findings: No acute fractures or dislocations. No significant loss of joint space, osteophytes, or erosions. No ankle effusion. No radiopaque foreign body. IMPRESSION: 1. No acute findings. This document has been electronically signed by: Art Chakraborty MD on 03/11/2025 21:20:45
[2025-03-11 20:00] VITALS: BP 129/79; PULSE 84; RESP 16; TEMP 36.7; O2SAT 100; BMI 30.8
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
[2025-03-11 21:38] VITALS: BP 129/79; PULSE 84; RESP 16; TEMP 36.7; O2SAT 100
== END 2025-03-11 21:54 | disposition home or self-care (01) ==
PROVIDERS: Emergency Provider Emergency Medicine; PCP Internal Medicine
DX: R07.81 Pleurodynia (principal); M25.572 Pain in left ankle and joints of left foot; V49.50XA Passenger injured in collision with unspecified motor vehicles in traffic accident, initial encounter; Y93.9 Activity, unspecified; Y92.9 Unspecified place or not applicable; Y99.9 Unspecified external cause status
CPT/HCPCS: 71101; 73610; 99284

== ENCOUNTER → 2025-03-11 20:03 | Outpatient (BNV) | payer MEDICAID, SELFPAY | PROVIDERS: Emergency Provider Emergency Medicine; PCP Internal Medicine; Visit Provider Specialist | DX: R07.89 Other chest pain (principal); M25.572 Pain in left ankle and joints of left foot | CPT/HCPCS: 71101; 73610 ==